=== PATIENT | male | born 1935 | race Caucasian/White ===

== ENCOUNTER 2017-02-04 19:43 | Inpatient (IN) | payer MEDICARE, BC ==
--- NOTE | ~2017-02-04 | CR72 ---
[facility] A Service of [facility] RADIOLOGY TEXT RESULTS PATIENT: ONI PATRICK LOCATION: [facility] : 37 UNIT #: [id number] AGE: [address]: Brandy Melgar MD SEX: M ORDER DR: [id number] [place], [place] [address] [id number] I MR#: [id number] Acc #: [id number] NAME: ONI PATRICK. : 1935 SEX: M STUDY DATE/TIME: 02/04/2017 22:12 [facility] ROOM: [facility] STUDY DESCRIPTION: CR Chest Single View Portable Attending Physician: Brandy Melgar M.D. Ordering Physician: Glenny Arredondo M.D. Primary Care Physician: Zaki Van M.D. MEDICAL IMAGING REPORT This report is preliminary unless electronic signature is present EXAM Portable chest INDICATION Shortness of air and cough for the past 3 days. PROCEDURE Frontal view chest. COMPARISON None. FINDINGS Moderately large cardiomegaly. Previous sternotomy and CABG. Mild prominence of central pulmonary vessels. No dense consolidation. Possible small right effusion. No visible pneumothorax. IMPRESSION 1. Moderately large cardiomegaly, previous CABG. 2. Mild prominence of central pulmonary vasculature. 3. Possible small right pleural effusion. Dictated by... Isidoro Wang M.D. THIS IS AN ELECTRONICALLY VERIFIED REPORT Isidoro Wang M.D. at 02/09/2017 7:25 AM EED/aa TD: 02/05/2017 09:25 JOB #: [id number] [facility] A Service of [facility] RADIOLOGY TEXT RESULTS PATIENT: ONI PATRICK LOCATION: [facility] : 37 UNIT #: [id number] AGE: [address]: Brandy Melgar MD SEX: M ORDER DR: MEDICAL IMAGING REPORT Page 1 of 1 COPY
--- NOTE | ~2017-02-04 | HP ---
Unit #: [id number] #: [id number] Patient: ONI PATRICK [id number] [address] [place], [place] [address] [id number] I MR#: [id number] NAME: ONI PATRICK. ROOM: 67428 Age: 81 Sex: M Admission Date: 02/05/2017 : 1935 Attending Physician: Desi Bonilla M.D. Primary Care Physician: Zaki Van M.D. HISTORY AND PHYSICAL CHIEF COMPLAINT Fall with extensive ecchymoses, and significant mid back pain resulting in hypoxia. HISTORY This 81-year-old male with CAD, atrial fibrillation for which he is chronically anticoagulated, is admitted for severe mid to upper back pain. The patient fell there days ago. States that he fell backwards in his yard hitting the back of his head and neck against a fence. He went to [facility] emergency department where he required three sutures for a laceration over the back of the head. X-rays were negative for fracture. Went home with Cognea, but is experiencing significant mid to upper back pain with any sort of movement. The pain is so severe that he will become short of breath and develop hypoxia with O2 sats of 70% to 80%. EMS was called, he was brought to this emergency department where his O2 saturation is 95% on 2 L of oxygen. However, off oxygen when ambulating, his O2 sats dropped to about 78%. On examination, he has extensive ecchymoses of the upper back. CTA of the chest is negative for acute disease, no compression fractures were seen. PAST MEDICAL HISTORY 1. CAD, status post four vessel CABG. 2. Hyperlipidemia. 3. Atrial fibrillation for which the patient is chronically anticoagulated. 4. Polyps in the colon removed. 5. Bilateral total knee replacement. 6. Bilateral cataract extraction. ALLERGIES Aleve and penicillin. HOME MEDICATIONS 1. Metoprolol 12.5 mg b.i.d. 2. Lasix 40 mg daily. 3. Potassium 10 mEq daily. 4. Lipitor 40 mg daily. 5. Hydrocodone 5/325. 6. Coumadin 7.5 mg daily except for 10 mg Tuesdays and . 7. Aspirin 81 mg daily. 8. Multivitamin. 9. Fish oil. Unit #: [id number] #: [id number] Patient: ONI PATRICK FAMILY HISTORY CAD. SOCIAL HISTORY The patient lives with his . He was disabled due to dementia. He is a lifelong nonsmoker, does not drink alcohol. REVIEW OF SYSTEMS Notable for significant mid to upper back pain after a fall, CAD, CABG, hyperlipidemia, atrial fibrillation, anticoagulated and above mentioned surgeries. The patient also notes some shortness of breath with his back pain. He is unable to ambulate due to severe mid to upper back pain. All other systems were reviewed and are negative. PHYSICAL EXAMINATION GENERAL APPEARANCE: Pleasant, obese, 81-year-old male who is in no acute distress when seated, but develops quite a bit of pain when sitting up. VITAL SIGNS: Rectal temperature 99.5, pulse 62, respirations 19, blood pressure 135/81. O2 saturation 95% on 2 L of oxygen. HEENT: Eyes PERRLA. Extraocular muscles are intact. Pharynx is benign. NECK: Supple without adenopathy or thyromegaly. CHEST: Clear. BACK: Upper back reveals extensive ecchymoses into the back of the neck as well. Percussion over the mid to upper back does not elicit pain. CARDIAC: Irregular S1 and S2 without murmur. ABDOMEN: Bowel sounds are present. No hepatosplenomegaly, tenderness or masses. EXTREMITIES: Without edema. Pedal pulses are diminished. NEUROLOGIC: The patient is awake, alert, oriented. His cranial nerves are intact. He has equal strength throughout. He is weak on exam. He needs some help to sit up. DIAGNOSTIC STUDIES LABORATORY: Hematocrit is 38.1, white blood count is 12.4, platelet count is 121. SMA-12 - chloride is 92, bilirubin is 2.4 which is mainly indirect. AST is 61. Normal lipase. Negative lactic acid. Troponin is 0.08. IMAGING: On 12/03/2016, head CT - soft tissue hematoma left occipital region. CT of the cervical spine - moderate to severe central canal stenosis at multiple levels. Gas within the soft tissues of the posterior left side of the neck associated with soft tissue swelling consistent with patient's described puncture wound. X-rays of the thoracic spine show DJD. CTA of the chest - cardiomegaly, some scarring, coronary artery disease. Negative for PE. CARDIOVASCULAR: EKG - atrial fibrillation, rate 55. Nonspecific ST wave abnormalities. ASSESSMENT 1. Fall three days ago with extensive ecchymoses of the upper back and neck and significant mid and upper back pain. CTA negative for acute Unit #: [id number] #: [id number] Patient: DARNELL,ONI C disease and no compression fracture. 2. Acute hypoxic respiratory failure when in pain. O2 sats decreased to 70% to 80%. 3. Chronic atrial fibrillation, anticoagulated. 4. Coronary artery disease, status post four vessel coronary artery bypass graft with indeterminate troponin. 5. Hyperlipidemia. PLANS 1. Oxygen. 2. Pain medicines. 3. K-Pad. 4. Xopenex mini nebs. 5. Repeat labs this morning. 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 Dictated by Janae Tubbs/debbie TD: 02/05/2017 05:50 JOB #: [id number] HISTORY AND PHYSICAL Page 1 of 1 X Desi Bonilla MD HISTORY AND PHYSICAL
--- NOTE | ~2017-02-04 | CO ---
Unit #: [id number] #: [id number] Patient: ONI PATRICK [id number] [facility]. [place], [place] [address] [id number] I MR#: [id number] NAME: ONI PATRICK. ROOM: 306 Age: 81 Sex: M Admission Date: 02/05/2017 : 1935 Attending Physician: Brandy Melgar M.D. Primary Care Physician: Zaki Van M.D. Consultation Date: 02/06/2017 CONSULTATION REPORT REASON FOR CONSULTATION Respiratory failure. HISTORY OF PRESENT ILLNESS This is a 81-year-old gentleman with coronary artery disease and atrial fibrillation, but denies any lung disease. Presents with "my sats were low." He apparently fell a few days ago and was evaluated at [facility] emergency room. No significant injuries, other than soft tissue injuries were identified and he was discharged on oral pain medicine. He noticed his saturations to be low. He apparently has a pulse oximeter at home. He really denied much in the way of shortness of breath. He was just monitoring his saturations. Denied sputum production, hemoptysis, chest pain, or wheezing. His pain is slowly improving, but they actually are considering rehab. PAST MEDICAL HISTORY Remarkable for chronic atrial fibrillation for which he is anticoagulated, coronary artery disease, hyperlipidemia, and he denies lung disease. MEDICATIONS Medicines at home include: 1. Metoprolol. 2. Lasix. 3. Potassium. 4. Lipitor. 5. Coumadin. 6. Aspirin. 7. Multivitamin. 8. Fish oil. ALLERGIES Penicillin, which causes a rash, and Naprosyn. SOCIAL HISTORY He is a never smoker. He lives with his . There is some mention that he may have some degree of dementia. FAMILY HISTORY Heart disease. REVIEW OF SYSTEMS Really, other than his shoulder and back pain, he denies chest pain, palpitations, abdominal pain, melena, hematochezia, hematuria, dysuria, focal weakness, and paresthesias. He has (1) pain and bruising. Unit #: [id number] #: [id number] Patient: ONI PATRICK He does snore and has intermittent daytime sleepiness. His family states that he has "snored all his life." Further review of systems negative. PHYSICAL EXAMINATION GENERAL APPEARANCE: Reveals a patient who is in no acute distress. VITAL SIGNS: He is afebrile; pulse 82; respiratory rate 20; blood pressure is 127/68; 5 feet, 7 inches; 235 pounds; and BMI is 36. HEENT: Pupils equal, round, and reactive to light. Sclerae anicteric. Head atraumatic. Mucous membranes moist. Mallampati class 4 oropharynx. NECK: Supple. No supraclavicular or cervical adenopathy appreciated. CHEST: Clear anteriorly. He could not sit up without significant pain for posterior auscultation. CARDIAC: Reveals an irregular rhythm. Soft murmur. No gallop. ABDOMEN: Soft and nontender. No hepatomegaly or rebound. EXTREMITIES: Reveal no clubbing, cyanosis, or edema. No calf tenderness. SKIN: Significant bruising on his back and shoulders. No acute rash. NEUROLOGIC: No gross focal muscle or sensory deficits noted. Obviously, exam limited by pain. DIAGNOSTIC STUDIES LABORATORY: Blood gas: pH of 7.38, pCO2 of 60, pO2 of 72 on 2 liters. His BUN is 15, creatinine is 0.8, and bilirubin mildly elevated at 2.4. Lactic acid 1.8. INR 3.9. Troponin 0.08. White blood cell count 12.7, hemoglobin 12, and platelet count 123. Urinalysis: 1+ blood. IMAGING: CT scan revealed no PE. There may be some very minimal emphysema, but primary finding is some band-like atelectasis. He also has some pleural thickening, right lower lobe, none of these of which were commented on by the radiologist. CARDIOVASCULAR: Rhythm strips: Atrial fibrillation. IMPRESSION 1. Hypoxemic respiratory failure secondary to atelectasis. 2. Abnormal CAT scan. Suspect no major underlying lung disease of clinical significance. 3. Likely obstructive sleep apnea with snoring, obesity, and daytime sleepiness with multiple comorbid cardiac conditions. 4. Atrial fibrillation. 5. Recent fall. 6. Medical problems listed above. PLAN Pulmonary hygiene. I suspect his oxygenation will improve as activity increases. It is okay to discharge to rehab at any time from a pulmonary point of view. Oxygenation status will need to be checked at time of discharge. I would suggest outpatient evaluation for sleep apnea. The pathophysiology of sleep apnea has been briefly discussed with the patient and family including treatment options. He seems agreeable to proceed. Thank you very much for allowing me to participate in the care of Mr. Patrick. Dictated by... Jerry Wiggins M.D. Unit #: [id number] #: [id number] Patient: ONI PATRICK JOVANI/jakob TD: 02/07/2017 09:34 JOB #: [id number] CONSULTATION REPORT Page 1 of 1 X Jerry Wiggins MD X CONSULTATION REPORT
--- NOTE | ~2017-02-04 | CT55 ---
[facility] A Service of [facility] RADIOLOGY TEXT RESULTS PATIENT: ONI PATRICK LOCATION: [facility] : 37 UNIT #: [id number] AGE: [address]: Brandy Melgar MD SEX: M ORDER DR: [id number] [facility] [address] [facility]. [place], [place] [address] [id number] I MR#: [id number] #: [id number] NAME: ONI PATRICK. : 1935 SEX: M STUDY DATE/TIME: 02/05/2017 0:41 UNIT: C3A PCU ROOM: [facility] STUDY DESCRIPTION: CT Chest W Con Attending Physician: Brandy Melgar M.D. Ordering Physician: Glenny Arredondo M.D. Primary Care Physician: Zaki Van M.D. MEDICAL IMAGING REPORT This report is preliminary unless electronic signature is present EXAM CT chest with contrast INDICATION Shortness of air for the past 3 days with chest pain. PROCEDURE Contrast-enhanced CTA of the chest attention on opacification of pulmonary arteries. Coronal 3-D MIP sagittal reformatted images reconstructed and submitted. This CT examination was performed with one or more of the following radiation dose reduction techniques: automatic exposure control, adjustment of mA and/or kV according to patient size, and iterative reconstruction. COMPARISON None. FINDINGS No evidence for pulmonary embolus. No evidence for acute aortic injury. Ascending thoracic aorta measures 4.3 cm. Cardiomegaly with coronary artery calcification. Previous CABG. Uncomplicated cholelithiasis. No aggressive appearing bone lesion. IMPRESSION 1. No evidence for pulmonary embolus or acute aortic injury. 2. Extensive coronary artery calcification, stenting and previous CABG. Cardiomegaly. 3. There is scarring in both lower lobes. Dictated by... Isidoro Wang M.D. [facility] A Service of [facility] RADIOLOGY TEXT RESULTS PATIENT: ONI PATRICK LOCATION: [facility] : 37 UNIT #: [id number] AGE: [address]: Brandy Melgar MD SEX: M ORDER DR: THIS IS AN ELECTRONICALLY VERIFIED REPORT Isidoro Wang M.D. at 02/09/2017 7:23 AM REN/jed TD: 02/05/2017 10:02 JOB #: [id number] MEDICAL IMAGING REPORT Page 1 of 1 COPY
--- NOTE | ~2017-02-04 | DS ---
Unit #: [id number] #: [id number] Patient: ONI PATRICK [id number] [address] [place], [place] [address] [id number] I MR#: [id number] NAME: ONI PATRICK. ROOM: 306 Age: 81 Sex: M Admission Date: 02/05/2017 : 1935 Discharge Date: 02/06/2017 Attending Physician: Brandy Melgar M.D. Primary Care Physician: Zaki Van M.D. DISCHARGE SUMMARY SHORT STAY SUMMARY HOSPITAL COURSE The patient is a 81-year-old male who was admitted to the hospital with a fall prior to admission and she was admitted with low pulse ox. Details are as per admission history and physical. DIAGNOSES ON DISCHARGE 1. Acute low back pain. 2. Upper back ecchymosis secondary to fall. 3. Acute respiratory failure, likely secondary to atelectasis and obstructive sleep apnea syndrome. 4. Chronic atrial fibrillation. 5. Coronary artery disease, status post coronary artery bypass grafting. 6. Hyperlipidemia. 7. Coumadin toxicity. CONSULTANTS Dr. Wiggins in pulmonary consultation. DIAGNOSTIC DATA LABORATORY: Creatinine 0.8, sodium 134, potassium 3.5, AST 61, ALT 32, white blood cell count 12.7, hemoglobin 12.0, (1) was 123. Troponin I was 0.36 and repeat was 0.18. IMAGING: CT scan of the cervical spine did not reveal any evidence of cervical spine fracture. The patient's INR is 3.9 today. HOSPITAL COURSE The patient is a 81-year-old male who was admitted to the hospital with falls. Details are as per admission history and physical. The patient is feeling better. He has ecchymosis as he is on Coumadin. Acute respiratory failure: Dr. Wiggnis saw the patient in consultation and thought it was secondary to atelectasis and recommended incentive spirometry. Elevated troponin: The patient's troponin has decreased. The patient has a history of coronary artery disease and bypass surgery. I discussed with the patient's family, who do not want to pursue any aggressive care as the patient is asymptomatic and does not have any chest pain. Coumadin toxicity: The patient's INR is 3.9 today. Kindly repeat INR on Thursday. Unit #: [id number] #: [id number] Patient: ONI PATRICK PHYSICAL EXAMINATION Today the patient is comfortable and is not in any acute distress. I discussed with the patient's daughter and and they both stated that the patient should go to [facility] for rehab and they are comfortable. All of their questions were answered to their apparent satisfaction. A stated, they will have the patient follow up with their family doctor. DISCHARGE CONDITION Stable. ACTIVITY As tolerated. DISCHARGE MEDICATIONS 1. Lopressor 12.5 mg p.o. daily. 2. MiraLAX 17 g p.o. daily. 3. Lasix 40 mg daily. 4. Lipitor 40 mg p.o. at nighttime. 5. Multivitamin 1 tablet p.o. daily. 6. Enteric coated aspirin 81 mg p.o. daily. 7. Hydrocodone 10 mg p.o. q.4 h. p.r.n. pain, which is the patient's home medication. No prescription was written. 8. Potassium 10 mEq p.o. daily. 9. Incentive spirometry q.2 h. while awake for five days. 10. Oxygen 2 liters via nasal cannula as needed if the patient's oxygen saturations are less than 90% DISPOSITION The patient will be transferred to [facility]. FOLLOWUP The patient should follow up with cardiology and pulmonary after discharge from the facility or earlier if needed. Kindly call us if there are any questions regarding this hospitalization. Dictated by... Janae Sarmiento/marisela TD: 02/06/2017 14:25 JOB #: [id number] CC: Janae Finch M.D. Unit #: [id number] #: [id number] Patient: ONI PATRICK DISCHARGE SUMMARY Page 1 of 1 X Brandy Melgar MD DISCHARGE SUMMARY
--- NOTE | ~2017-02-04 | EKG ---
PATIENT: ONI PATRICK UNIT #: [id number] Ventricular Rate: 55 BPM Atrial Rate: 42 BPM QRS Duration: 96 ms Q-T Interval: 426 ms QTC Calculation(Bezet): 407 ms Calculated R Sophia: -28 degrees Calculated T Sophia: 74 degrees Diagnosis Line: Atrial fibrillation with slow ventricular response Diagnosis Line: Septal infarct , age undetermined Diagnosis Line: Abnormal ECG Diagnosis Line: When compared with ECG of 02-FEB-2017 21:43, Diagnosis Line: Nonspecific T wave abnormality now evident in Diagnosis Line: Inferior leads Diagnosis Line: T wave inversion now evident in Lateral leads Diagnosis Line: Confirmed by LACEY EDMONDSON MD ([id number]) on Diagnosis Line: 02/05/2017 7:10:36 PM INTERPRETING MD: DEBO BOLAND
[~2017-02-04 19:43] MED LIST: AMIODARONE; ASPIRIN81 M2 PO; COUMADIN PO; CRESTOR; FISH OIL500 M2; FUROSEMIDE40 MG PO; KCL PO; LASIX; LIPITOR40 MG PO; LOPRESSOR PO; MULTIPLE VITAMI1 T13 PO; WARFARIN SODIUM10 M1 PO
[2017-02-04 22:08] LABS: BASOPHIL% 0.3 % (0-2.5); EOSINOPHIL% 0.1 % (0.0-7.0); HEMATOCRIT 38.1 % (38.0-50.0); HEMOGLOBIN 12.6 gm/dL (13.0-16.0); LYMPHOCYTE# 1.5 X10e3 (1.0-3.5); LYMPHOCYTE% 11.8 % (17.0-45.0); MEAN CELL VOLUME 98.4 FL (83-96); MEAN CORPUSCULAR HEMOGLOBIN 32.4 PG (28-34); MEAN PLATELET VOLUME 8.5 FL (6.5-11.5); MONOCYTE# 1.3 X10e3 (0-1.0); MONOCYTE% 10.7 % (3.0-12.0); NEUTROPHIL# 9.5 X10e3 (1.5-7.1); NEUTROPHIL% 77.1 % (40-75); PLATELET COUNT 121 X10e3 (140-420); RED BLOOD COUNT 3.87 X10e (3.90-5.60); RED CELL DISTRIBUTION WIDTH 15.4 % (11.0-15.5); WHITE BLOOD COUNT 12.4 X10e3 (4.0-10.5)
[2017-02-04 22:22] LABS: DIFF IND NO
[2017-02-04 22:25] LABS: POC - CKMB 4.1 ng/mL (0.0-7.9); POC - TROPONIN 0.08 ng/mL (<=0.05)
[2017-02-04 22:26] LABS: PARTIAL THROMBOPLASTIN TIME 35.7 SECONDS (23.5-31.3); PROTHROMBIN TIME (PATIENT) 33.3 SECONDS (9.6-11.5)
[2017-02-04 22:32] LABS: ALBUMIN SERUM 4.2 g/dL (3.5-5.0); BILIRUBIN, DIRECT 0.5 mg/dL (0.0-0.2); BILIRUBIN,INDIRECT 1.9 mg/dL (0.0-0.9); BILIRUBIN,TOTAL 2.4 mg/dL (0.2-2.0); BUN/CREATININE RATIO 20.9; CALCIUM SERUM 8.9 mg/dL (8.4-10.2); CREATININE SERUM 1.1 mg/dL (0.6-1.4); GLOM FILT RATE Estimated 63.5 mL/min (>60); POTASSIUM 3.6 mmol/L (3.5-5.1); PROTEIN TOTAL SERUM 7.6 g/dL (6.0-8.3)
[2017-02-05] MEDS ORDERED: METOPROLOL TAR25 MG PO (03:25)
[2017-02-05] MEDS ORDERED: KLOR-CON PO (03:26)
[2017-02-05] MEDS ORDERED: HYDROCODON-ACE1 EAC7 PO (03:27)
[2017-02-05] MEDS ORDERED: COUMADIN7.5 MG PO (03:28)
[2017-02-05] MEDS ORDERED: COUMADIN10 MG PO (03:28)
[2017-02-05 06:12] LABS: BASOPHIL% 0.3 % (0-2.5); EOSINOPHIL% 0.2 % (0.0-7.0); HEMATOCRIT 35.7 % (38.0-50.0); HEMOGLOBIN 11.8 gm/dL (13.0-16.0); LYMPHOCYTE# 1.9 X10e3 (1.0-3.5); LYMPHOCYTE% 14.3 % (17.0-45.0); MEAN CELL VOLUME 99.2 FL (83-96); MEAN CORPUSCULAR HEMOGLOBIN 32.9 PG (28-34); MEAN CORPUSCULAR HGB CONC 33.2 g/dL (30-36); MEAN PLATELET VOLUME 8.8 FL (6.5-11.5); MONOCYTE# 1.4 X10e3 (0-1.0); MONOCYTE% 10.6 % (3.0-12.0); NEUTROPHIL# 9.8 X10e3 (1.5-7.1); NEUTROPHIL% 74.6 % (40-75); PLATELET COUNT 120 X10e3 (140-420); RED BLOOD COUNT 3.59 X10e (3.90-5.60); RED CELL DISTRIBUTION WIDTH 15.8 % (11.0-15.5); WHITE BLOOD COUNT 13.1 X10e3 (4.0-10.5)
[2017-02-05 06:13] LABS: DIFF IND NO
[2017-02-05 06:24] LABS: INR 3.2; PROTHROMBIN TIME (PATIENT) 34.8 SECONDS (9.6-11.5)
[2017-02-05 06:43] LABS: CALCIUM SERUM 8.2 mg/dL (8.4-10.2); CREATININE SERUM 0.8 mg/dL (0.6-1.4); POTASSIUM 3.5 mmol/L (3.5-5.1)
[2017-02-05 09:15] LABS: %MB 2.4 % (0.0-4.0); MB 10.3 ng/ml
[2017-02-05 16:24] LABS: ARTERIAL BLOOD GAS PCO2 60.6 mmHg (35.0-45.0); ARTERIAL BLOOD GAS PO2 72.5 mmHg (80.0-100)
[2017-02-05 16:25] LABS: ARTERIAL BLD GAS O2 SATURATION 94.8 % (90.0-100.0); ARTERIAL BLOOD GAS ALLEN TEST NORMAL; ARTERIAL BLOOD GAS ART SITE LEFT RADIAL; ARTERIAL BLOOD GAS CARBOXY HB 1.3 %sat (0.0-9.0); ARTERIAL BLOOD GAS DELIVERY NASAL CANNULA; ARTERIAL BLOOD GAS MET HB 0.7 %sat (0.0-2.0); ARTERIAL DRAW? YES
[2017-02-06 05:17] LABS: HEMATOCRIT 36.6 % (38.0-50.0); MEAN CELL VOLUME 99.1 FL (83-96); MEAN CORPUSCULAR HEMOGLOBIN 32.5 PG (28-34); MEAN CORPUSCULAR HGB CONC 32.8 g/dL (30-36); MEAN PLATELET VOLUME 8.7 FL (6.5-11.5); RED BLOOD COUNT 3.69 X10e (3.90-5.60); RED CELL DISTRIBUTION WIDTH 15.1 % (11.0-15.5); WHITE BLOOD COUNT 12.7 X10e3 (4.0-10.5)
[2017-02-06 05:29] LABS: INR 3.9; PROTHROMBIN TIME (PATIENT) 43.3 SECONDS (9.6-11.5)
[2017-02-06 06:07] LABS: BUN/CREATININE RATIO 18.75; CALCIUM SERUM 8.2 mg/dL (8.4-10.2); CREATININE SERUM 0.8 mg/dL (0.6-1.4); POTASSIUM 3.5 mmol/L (3.5-5.1)
[2017-02-06 06:27] LABS: %MB 3.7 % (0.0-4.0); MB 7.2 ng/ml
== END 2017-02-06 17:31 | DRG 189 ==
LOC: CED 19:43 → CEDOF 02-05 03:50 → C3A PCU 02-05 03:53 → CED 02-05 03:53 → CEDOF 02-05 07:46 → C3A PCU 02-05 09:00
PROVIDERS: Emergency Medicine; Internal Medicine
DX: J96.01 Acute respiratory failure with hypoxia (principal); I48.2 Chronic atrial fibrillation; F03.90 Unspecified dementia, unspecified severity, without behavioral disturbance, psychotic disturbance, mood disturbance, and anxiety; J98.11 Atelectasis; M54.5 Low back pain; I25.10 Atherosclerotic heart disease of native coronary artery without angina pectoris; Z95.1 Presence of aortocoronary bypass graft; E78.5 Hyperlipidemia, unspecified; T45.515A Adverse effect of anticoagulants, initial encounter; Z96.653 Presence of artificial knee joint, bilateral; Z98.42 Cataract extraction status, left eye; Z98.41 Cataract extraction status, right eye; Z88.6 Allergy status to analgesic agent; Z88.0 Allergy status to penicillin; Z79.01 Long term (current) use of anticoagulants; Z79.82 Long term (current) use of aspirin; S20.229D Contusion of unspecified back wall of thorax, subsequent encounter; W18.30XD Fall on same level, unspecified, subsequent encounter; G47.33 Obstructive sleep apnea (adult) (pediatric)
CPT/HCPCS: 36415; 36600; 70450; 71010; 71260; 72072; 72125; 80048; 80076; 81003; 82550; 82553; 82803; 83605; 83690; 84484; 85025; 85027; 85610; 85730; 93005; 94640; 94760; 97116; 97162; 97166; 97530; 97535; 99285; G8978-GP; G8979-GP; G8987-GO; G8988-GO; J2270; Q9967